=== PATIENT | male | born 1980 | race Caucasian/White ===

== ENCOUNTER 2024-05-25 17:50 | Emergency (ER) | payer OTHER ==
[~2024-05-25] VITALS: Ht 180.3 cm; Wt 95.8 kg
[2024-05-25] MEDS: PERCOCET 5MG/325MG TAB PO ONE (20:07)
[2024-05-25] MEDS: OXYCODONE/APAP 5MG/325MG(HOME DOSE PACK) PO ONE (20:40)
[2024-05-25 20:45] VITALS: BP 141/94; TEMP 97.6; O2SAT 97
== END 2024-05-25 20:46 | disposition home or self-care (01) ==
LOC: M ED 17:50
DX: S62.601A Fracture of unspecified phalanx of left index finger, initial encounter for closed fracture (principal); Y92.9 Unspecified place or not applicable; Y93.9 Activity, unspecified; Y99.0 Civilian activity done for income or pay; Z88.0 Allergy status to penicillin